=== PATIENT | male | born 1960 | race Caucasian/White ===

== ENCOUNTER 2023-10-28 11:27 | Inpatient (IN) | payer MEDICARE, OTHER ==
[~2023-10-28] VITALS: Ht 175.3 cm; Wt 68.0 kg
[2023-10-28] MEDS ORDERED: DIVA500T2 PO (11:47)
[2023-10-28] MEDS ORDERED: ACET325C7 PO (11:47)
[2023-10-28] MEDS ORDERED: ENOX40DI SQ (11:47)
[2023-10-28] MEDS ORDERED: CARB1CAP7 PO (11:47)
[2023-10-28] MEDS ORDERED: ARGI1POW17 PO (11:47)
[2023-10-28] MEDS ORDERED: ASCO500C18 PO (11:47)
[2023-10-28] MEDS ORDERED: TEMA7.5C2 PO (11:47)
[2023-10-28] MEDS ORDERED: IPRA4AER IH (11:47)
[2023-10-28] MEDS ORDERED: MONT10TA33 PO (11:47)
[2023-10-28] MEDS ORDERED: RISP2TAB5 PO (11:47)
[2023-10-28] MEDS ORDERED: IPRA3AMP23 IH (11:47)
[2023-10-28] MEDS ORDERED: MAGN400O6 PO (11:47)
[2023-10-28] MEDS ORDERED: RISP1TAB97 PO (11:47)
[2023-10-28] MEDS ORDERED: MULT-213 PO (11:47)
[2023-10-28] MEDS ORDERED: PANT40TA2 PO (11:47)
[2023-10-28] MEDS ORDERED: NA P133E RC (11:47)
[2023-10-28] MEDS ORDERED: LORA0.5T48 PO (11:47)
[2023-10-28] MEDS ORDERED: ZINC220T4 PO (11:47)
[2023-10-28] MEDS ORDERED: BISA10SU61 RC (11:47)
[2023-10-28 11:58] LABS: BASOPHILS # (AUTO) 0.2 K/UL (0.0-0.2); BASOPHILS % (AUTO) 1.3 % (0.0-2.0); EOSINOPHILS % (AUTO) 0.1 % (0.0-7.0); HEMATOCRIT 40.9 % (36.7-47.1); HEMOGLOBIN 13.1 g/dL (12.5-16.3); LYMPHOCYTES # (AUTO) 0.6 K/uL (0.8-4.8); LYMPHOCYTES % (AUTO) 3.7 % (20.5-51.5); MEAN CORPUSCULAR HEMOGLOBIN 28.4 uug (23.8-33.4); MEAN CORPUSCULAR HGB CONC 32 g/dL (32.5-36.3); MEAN CORPUSCULAR VOLUME 88.3 fL (73.0-96.2); MONOCYTES # (AUTO) 0.5 K/uL (0.1-1.30); MONOCYTES % (AUTO) 2.9 % (0.0-11.0); NEUTROPHILS # (AUTO) 15.9 K/uL (1.8-8.9); PLATELET COUNT (AUTO) 235 K/uL (152-348); RED BLOOD CELL COUNT(AUTO) 4.63 MIL/uL (4.06-5.63); RED CELL DISTRIBUTION WIDTH 13.5 % (12.1-16.2); WHITE BLOOD COUNT (AUTO) 17.2 K/uL (3.6-10.2)
[2023-10-28 12:00] LABS: DIFFERENTIAL COMMENT 1
[2023-10-28 12:05] LABS: CALCIUM 9.4 mg/dL (8.5-10.1); CARBON DIOXIDE 30 mmol/L (21-32); CHLORIDE 100 mmol/L (98-107); CREATININE 0.8 mg/dL (0.6-1.3); GLUCOSE 134 mg/dL (74-106); POTASSIUM 4.4 mmol/L (3.5-5.1); SODIUM SERUM 138 mmol/L (136-145); UREA NITROGEN, BLOOD 32 mg/dL (7-18)
[2023-10-28] MEDS: IV NORMAL SALINE 1000 ML BAG IV ONE (12:15)
[2023-10-28] MEDS: DEXAMETHASONE SOD PHOSPHATE 4 MG INJ IV ONE (12:15)
[2023-10-28] MEDS: CEFEPIME HCL 2 G in IV DEXTROSE 5% 100 ML IV ONE (12:15)
[2023-10-28 12:17] LABS: ABG BASE EXCESS 2.8 mmol/L (-2.0-2.0); ABG HCO3 27.2 mmol/L (22.0-26.0); ABG PCO2 41.1 mmHg (35.0-48.0); ABG PH 7.439 (7.340-7.440); ABG PO2 119.5 mmHg (75.0-100.0); ABG SITE RIGHT RADIAL; AaDO2 98.4 mmHg; COHb 0.5 % (0.0-3.9); MetHb 0.4 % (0.0-1.5); O2Hb 97.8 % (94.0-97.0)
[2023-10-28 12:18] LABS: ALANINE AMINOTRANSFERASE < 6 U/L (16-63); ALBUMIN 3.4 g/dL (3.4-5.0); ALKALINE PHOSPHATASE 70 U/L (50-136); ASPARTATE AMINOTRANSFERASE < 5 U/L (15-37); BILIRUBIN,DIRECT 0.2 mg/dL (0.0-0.2); BILIRUBIN,TOTAL 0.8 mg/dL (0.2-1.0); NT-PRO BNP 152 pg/mL (0-125); TOTAL PROTEIN, SERUM 7.1 g/dL (6.4-8.2)
[2023-10-28] MEDS ORDERED: DEXAMETHASONE SOD PHOSPHATE 10 MG INJ ONE (12:20)
[2023-10-28] MEDS ORDERED: CEFEPIME HCL 1 G VIAL ONE (12:20)
[2023-10-28 12:25] LABS: ANISOCYTOSIS 1+; BAND % (MANUAL) 3 % (0-10); LYMPHOCYTES % (MANUAL) 4 % (20-40); MONOCYTES % (MANUAL) 1 % (2-10); NEUTROPHILS % (MANUAL) 92 % (42-75); PLATELET ESTIMATE ADEQUATE
[2023-10-28 12:45] LABS: *BILIRUBIN,URIN 1+ (NEGATIVE); *BLOOD, URINE NEGATIVE (NEGATIVE); *CLARITY,URINE CLEAR (CLEAR); *KETONES,URINE 3+ (NEGATIVE); *PROTEIN,URINE 1+ (NEGATIVE); *UROBILINOGEN,URINE 0.2 E.U./dl (NORMAL); LEUKOCYTE ESTERASE ,URINE NEGATIVE (NEGATIVE); NITRITE, URINE NEGATIVE (NEGATIVE); UGLUCOSE NEGATIVE (NEGATIVE)
[2023-10-28 12:56] LABS: *COLOR,URINE DARK YELLOW (YELLOW)
[2023-10-28 12:59] LABS: RBC,URINE 0-3 /HPF (0-3)
[2023-10-28 13:00] LABS: BACTERIA,URINE NONE SEEN /HPF (NONE SEEN); SQUAMOUS EPITHELIAL CELL,UR FEW /HPF (NONE SEEN); WBC,URINE 0-3 /HPF (0-3)
[2023-10-28 16:28] VITALS: O2SAT 95
[2023-10-28 16:43] VITALS: BP 127/76; TEMP 99; O2SAT 95
[2023-10-28] MEDS ORDERED: BISACODYL 10 MG SUPP.RECT RC PRN (18:15)
[2023-10-28] MEDS ORDERED: ACETAMINOPHEN 325 MG TABLET PO PRN (18:15)
[2023-10-28] MEDS ORDERED: MAGNESIUM HYDROXIDE 30 ML LIQUID UDC PO PRN (18:15)
[2023-10-28] MEDS ORDERED: [UNRECOGNIZED DRUG - OTHER] PO SCH (18:15)
[2023-10-28] MEDS ORDERED: FLEET ENEMA 133 ML BOTTLE RC PRN (18:15)
[2023-10-28] MEDS ORDERED: LORAZEPAM 0.5 MG TABLET PO PRN (18:15)
[2023-10-28] MEDS ORDERED: TEMAZEPAM 7.5 MG CAPSULE PO PRN (18:15)
[2023-10-28 19:45] VITALS: BP 132/45; TEMP 98.4; O2SAT 94
[2023-10-28] MEDS: LORAZEPAM 2 MG/1 ML VIAL IV PRN (20:56)
[2023-10-28] MEDS: DIVALPROEX 500 MG TABLET.DR PO SCH (21:00)
[2023-10-28] MEDS: risperiDONE 2 MG TABLET PO SCH (21:00)
[2023-10-28] MEDS: MONTELUKAST SODIUM 10 MG TABLET PO SCH (21:00)
[2023-10-28] MEDS: PIPERACILLIN SODIUM/TAZOBACTAM 3.375 G in IV DEXTROSE 5% 100 ML IV SCH (21:20)
[2023-10-28 21:22] VITALS: O2SAT 95
[2023-10-28] MEDS ORDERED: PIPERACILLIN SODIUM/TAZOBACTAM 3.375 G in IV DEXTROSE 5% 50 ML IV SCH (22:00)
[2023-10-28 23:25] VITALS: TEMP 100.5
[2023-10-28] MEDS ORDERED: AMIODARONE HCL 150 MG/3 ML VIAL IV ONE (23:44)
[2023-10-28] MEDS: AMIODARONE HCL 150 MG/3 ML VIAL IV ONE (23:50)
[2023-10-29] VITALS (8 sets, daily range): BP systolic 62–118; BP diastolic 46–72; TEMP 97.2–100.5; O2SAT 97–99
[2023-10-29] MEDS: AMIODARONE HCL IV 150 MG in IV DEXTROSE 5% 100 ML IV ONE
[2023-10-29] MEDS: AMIODARONE HCL IV 450 MG in IV DEXTROSE 5% 250 ML IV PRN (00:20)
[2023-10-29] MEDS: ACETAMINOPHEN 650 MG SUPP.RECT RC PRN (02:36)
[2023-10-29] MEDS: AMIODARONE HCL 150 MG/3 ML VIAL IV ONE (05:51)
[2023-10-29] MEDS: PANTOPRAZOLE SODIUM 40 MG TABLET.DR PO SCH (06:02)
[2023-10-29 06:58] LABS: EOSINOPHILS % (AUTO) 0.1 % (0.0-7.0); HEMATOCRIT 39.6 % (36.7-47.1); LYMPHOCYTES # (AUTO) 0.1 K/uL (0.8-4.8); LYMPHOCYTES % (AUTO) 1.4 % (20.5-51.5); MEAN CORPUSCULAR HEMOGLOBIN 28.8 uug (23.8-33.4); MEAN CORPUSCULAR HGB CONC 33 g/dL (32.5-36.3); MEAN CORPUSCULAR VOLUME 87.7 fL (73.0-96.2); MONOCYTES # (AUTO) 0.2 K/uL (0.1-1.30); MONOCYTES % (AUTO) 2.3 % (0.0-11.0); NEUTROPHILS # (AUTO) 8.3 K/uL (1.8-8.9); NEUTROPHILS % (AUTO) 96.2 % (38.5-71.5); PLATELET COUNT (AUTO) 210 K/uL (152-348); RED BLOOD CELL COUNT(AUTO) 4.51 MIL/uL (4.06-5.63); RED CELL DISTRIBUTION WIDTH 13.5 % (12.1-16.2); WHITE BLOOD COUNT (AUTO) 8.6 K/uL (3.6-10.2)
[2023-10-29 07:07] LABS: DIFFERENTIAL COMMENT 1
[2023-10-29 07:23] LABS: ALANINE AMINOTRANSFERASE 23 U/L (16-63); ALKALINE PHOSPHATASE 62 U/L (50-136); ASPARTATE AMINOTRANSFERASE < 5 U/L (15-37); BILIRUBIN,TOTAL 0.5 mg/dL (0.2-1.0); CALCIUM 8.8 mg/dL (8.5-10.1); CARBON DIOXIDE 29 mmol/L (21-32); CHLORIDE 105 mmol/L (98-107); CHOLESTEROL 103 mg/dL (<200); GLUCOSE 153 mg/dL (74-106); HDL CHOLESTEROL 54 mg/dL (40-60); MAGNESIUM 2.5 mg/dL (1.8-2.4); PHOSPHOROUS 4.1 mg/dL (2.5-4.9); POTASSIUM 4.2 mmol/L (3.5-5.1); SODIUM SERUM 141 mmol/L (136-145); TOTAL PROTEIN, SERUM 6.6 g/dL (6.4-8.2); TRIGLYCERIDES 55 MG/DL (30-150); UREA NITROGEN, BLOOD 31 mg/dL (7-18)
[2023-10-29 08:10] LABS: THYROID STIMULATING HORMONE 1.132 mIU/mL (0.358-3.740)
[2023-10-29] MEDS ORDERED: DILTIAZEM HCL 30 MG TABLET PO SCH ×2 (08:30→12:00)
[2023-10-29] MEDS: ARGININE/GLUTAMINE/CALCIUM BMB 1 EACH POWD.PACK PO SCH (09:00)
[2023-10-29] MEDS: ASCORBIC ACID 500 MG TABLET PO SCH (09:00)
[2023-10-29] MEDS: ZINC SULFATE 220 MG CAPSULE PO SCH (09:00)
[2023-10-29] MEDS: MULTIVITAMINS,THERAPEUTIC TABLET PO SCH (09:00)
[2023-10-29] MEDS: risperiDONE 1 MG TABLET PO SCH (09:00)
[2023-10-29] MEDS: ENOXAPARIN SODIUM 40 MG/0.4 ML DISP.SYRIN SQ SCH (09:05)
[2023-10-29] MEDS ORDERED: ACETAMINOPHEN 650 MG SUPP.RECT RC PRN (20:45)
[2023-10-30] VITALS (10 sets, daily range): BP systolic 133–162; BP diastolic 76–87; TEMP 97.5–98.7; O2SAT 97–100
[2023-10-30 05:15] LABS: BASOPHILS # (AUTO) 0.1 K/UL (0.0-0.2); BASOPHILS % (AUTO) 1.9 % (0.0-2.0); EOSINOPHILS % (AUTO) 0.6 % (0.0-7.0); HEMATOCRIT 39.2 % (36.7-47.1); HEMOGLOBIN 12.6 g/dL (12.5-16.3); LYMPHOCYTES # (AUTO) 0.4 K/uL (0.8-4.8); LYMPHOCYTES % (AUTO) 13.7 % (20.5-51.5); MEAN CORPUSCULAR HEMOGLOBIN 28.3 uug (23.8-33.4); MEAN CORPUSCULAR HGB CONC 32 g/dL (32.5-36.3); MEAN CORPUSCULAR VOLUME 88.4 fL (73.0-96.2); MONOCYTES # (AUTO) 0.1 K/uL (0.1-1.30); MONOCYTES % (AUTO) 3.4 % (0.0-11.0); NEUTROPHILS # (AUTO) 2.2 K/uL (1.8-8.9); NEUTROPHILS % (AUTO) 80.4 % (38.5-71.5); PLATELET COUNT (AUTO) 176 K/uL (152-348); RED BLOOD CELL COUNT(AUTO) 4.44 MIL/uL (4.06-5.63); RED CELL DISTRIBUTION WIDTH 13.6 % (12.1-16.2); WHITE BLOOD COUNT (AUTO) 2.8 K/uL (3.6-10.2)
[2023-10-30 05:20] LABS: DIFFERENTIAL COMMENT 1
[2023-10-30 05:28] LABS: CALCIUM 8.7 mg/dL (8.5-10.1); CREATININE 0.7 mg/dL (0.6-1.3); MAGNESIUM 2.6 mg/dL (1.8-2.4); PHOSPHOROUS 3.5 mg/dL (2.5-4.9)
[2023-10-30] MEDS ORDERED: LEVALBUTEROL HCL NEB 0.63 MG/3 ML NEBU NEB PRN (08:15)
[2023-10-30] MEDS ORDERED: IPRATROPIUM BROMIDE 0.5 MG/2.5 ML NEBU NEB PRN (08:15)
[2023-10-30] MEDS: PANTOPRAZOLE SODIUM 40 MG VIAL IV SCH (09:07)
[2023-10-30 13:28] LABS: BAND % (MANUAL) 1 % (0-10); HYPOCHROMASIA 1+; LYMPHOCYTES % (MANUAL) 13 % (20-40); MONOCYTES % (MANUAL) 1 % (2-10); NEUTROPHILS % (MANUAL) 85 % (42-75); PLATELET ESTIMATE ADEQUATE
[2023-10-30 13:29] LABS: ANISOCYTOSIS 1+
[2023-10-30] MEDS: levETIRAcetam IV 1,000 MG in IV DEXTROSE 5% 100 ML IV SCH (15:07)
[2023-10-30] MEDS: AMIODARONE HCL 200 MG TABLET PO SCH (16:41)
[2023-10-31] VITALS (15 sets, daily range): BP systolic 115–172; BP diastolic 66–91; TEMP 97.8–101; O2SAT 94–100
[2023-10-31 05:09] LABS: BASOPHILS % (AUTO) 0.5 % (0.0-2.0); EOSINOPHILS % (AUTO) 0.4 % (0.0-7.0); HEMOGLOBIN 13.2 g/dL (12.5-16.3); LYMPHOCYTES # (AUTO) 0.6 K/uL (0.8-4.8); LYMPHOCYTES % (AUTO) 17.8 % (20.5-51.5); MEAN CORPUSCULAR HEMOGLOBIN 29.1 uug (23.8-33.4); MEAN CORPUSCULAR HGB CONC 33 g/dL (32.5-36.3); MEAN CORPUSCULAR VOLUME 88.3 fL (73.0-96.2); MONOCYTES # (AUTO) 0.1 K/uL (0.1-1.30); MONOCYTES % (AUTO) 2.7 % (0.0-11.0); NEUTROPHILS # (AUTO) 2.8 K/uL (1.8-8.9); NEUTROPHILS % (AUTO) 78.6 % (38.5-71.5); PLATELET COUNT (AUTO) 195 K/uL (152-348); RED BLOOD CELL COUNT(AUTO) 4.53 MIL/uL (4.06-5.63); RED CELL DISTRIBUTION WIDTH 13.5 % (12.1-16.2); WHITE BLOOD COUNT (AUTO) 3.6 K/uL (3.6-10.2)
[2023-10-31 05:11] LABS: DIFFERENTIAL COMMENT 1
[2023-10-31 05:26] LABS: BILIRUBIN,TOTAL 0.6 mg/dL (0.2-1.0); CALCIUM 8.7 mg/dL (8.5-10.1); CREATININE 0.8 mg/dL (0.6-1.3); MAGNESIUM 2.6 mg/dL (1.8-2.4); PHOSPHOROUS 3.7 mg/dL (2.5-4.9); TOTAL PROTEIN, SERUM 6.9 g/dL (6.4-8.2)
[2023-10-31] MEDS ORDERED: AMIODARONE HCL IV 450 MG in IV DEXTROSE 5% 250 ML IV PRN (06:00)
[2023-10-31] MEDS: AMIODARONE HCL IV 150 MG in IV DEXTROSE 5% 100 ML IV ONE ×2 (06:00→19:54)
[2023-10-31] MEDS: AMIODARONE HCL 200 MG TABLET PO SCH (12:32)
[2023-10-31] MEDS: CARBIDOPA/LEVODOPA 25-250MG TABLET NG SCH (13:05)
[2023-10-31] MEDS: AMIODARONE HCL 150 MG/3 ML VIAL IV ONE (19:50)
[2023-10-31] MEDS: AMIODARONE HCL IV 450 MG in IV DEXTROSE 5% 250 ML IV PRN (20:05)
[2023-11-01] VITALS (12 sets, daily range): BP systolic 101–157; BP diastolic 56–83; TEMP 98.4–100.5; O2SAT 97–100
[2023-11-01 05:01] LABS: BASOPHILS % (AUTO) 0.3 % (0.0-2.0); EOSINOPHILS % (AUTO) 0.6 % (0.0-7.0); HEMATOCRIT 39.1 % (36.7-47.1); HEMOGLOBIN 12.8 g/dL (12.5-16.3); LYMPHOCYTES # (AUTO) 0.6 K/uL (0.8-4.8); LYMPHOCYTES % (AUTO) 12.6 % (20.5-51.5); MEAN CORPUSCULAR HEMOGLOBIN 28.6 uug (23.8-33.4); MEAN CORPUSCULAR HGB CONC 33 g/dL (32.5-36.3); MEAN CORPUSCULAR VOLUME 87.7 fL (73.0-96.2); MONOCYTES # (AUTO) 0.2 K/uL (0.1-1.30); MONOCYTES % (AUTO) 3.4 % (0.0-11.0); NEUTROPHILS # (AUTO) 4.1 K/uL (1.8-8.9); NEUTROPHILS % (AUTO) 83.1 % (38.5-71.5); PLATELET COUNT (AUTO) 187 K/uL (152-348); RED BLOOD CELL COUNT(AUTO) 4.46 MIL/uL (4.06-5.63); RED CELL DISTRIBUTION WIDTH 13.5 % (12.1-16.2); WHITE BLOOD COUNT (AUTO) 4.9 K/uL (3.6-10.2)
[2023-11-01 05:09] LABS: DIFFERENTIAL COMMENT 1
[2023-11-01 05:13] LABS: CREATININE 0.7 mg/dL (0.6-1.3); MAGNESIUM 2.5 mg/dL (1.8-2.4); PHOSPHOROUS 3.9 mg/dL (2.5-4.9); POTASSIUM 3.9 mmol/L (3.5-5.1)
[2023-11-01] MEDS: ACETAMINOPHEN 500 MG TABLET NG PRN (08:04)
[2023-11-01] MEDS ORDERED: DIVALPROEX 500 MG TABLET.DR PO SCH (09:00)
[2023-11-01] MEDS ORDERED: IV D5W-0.45% NS 1000 ML BAG IV ONE (09:00)
[2023-11-01] MEDS: IV D5 1/2 NS 1000 ML 1,000 ML IV PRN (09:03)
[2023-11-01] MEDS ORDERED: ACETAMINOPHEN 650 MG SUPP.RECT RC PRN (19:45)
[2023-11-02] VITALS (9 sets, daily range): BP systolic 131–135; BP diastolic 64–90; TEMP 97.6–99; O2SAT 94–98
[2023-11-02 06:18] LABS: BASOPHILS # (AUTO) 0.1 K/UL (0.0-0.2); BASOPHILS % (AUTO) 2.4 % (0.0-2.0); EOSINOPHILS # (AUTO) 0.1 K/uL (0.0-0.7); HEMATOCRIT 38.3 % (36.7-47.1); HEMOGLOBIN 12.2 g/dL (12.5-16.3); LYMPHOCYTES # (AUTO) 0.6 K/uL (0.8-4.8); LYMPHOCYTES % (AUTO) 12.3 % (20.5-51.5); MEAN CORPUSCULAR HGB CONC 32 g/dL (32.5-36.3); MEAN CORPUSCULAR VOLUME 87.7 fL (73.0-96.2); MONOCYTES # (AUTO) 0.3 K/uL (0.1-1.30); MONOCYTES % (AUTO) 5.3 % (0.0-11.0); NEUTROPHILS # (AUTO) 4.2 K/uL (1.8-8.9); PLATELET COUNT (AUTO) 161 K/uL (152-348); RED BLOOD CELL COUNT(AUTO) 4.37 MIL/uL (4.06-5.63); RED CELL DISTRIBUTION WIDTH 13.1 % (12.1-16.2); WHITE BLOOD COUNT (AUTO) 5.3 K/uL (3.6-10.2)
[2023-11-02 06:23] LABS: DIFFERENTIAL COMMENT 1
[2023-11-02 06:34] LABS: ALANINE AMINOTRANSFERASE 12 U/L (16-63); ALBUMIN 2.7 g/dL (3.4-5.0); ALKALINE PHOSPHATASE 57 U/L (50-136); ASPARTATE AMINOTRANSFERASE 6 U/L (15-37); BILIRUBIN,TOTAL 0.5 mg/dL (0.2-1.0); CALCIUM 8.8 mg/dL (8.5-10.1); CARBON DIOXIDE 34 mmol/L (21-32); CHLORIDE 110 mmol/L (98-107); CREATININE 0.5 mg/dL (0.6-1.3); GLUCOSE 120 mg/dL (74-106); MAGNESIUM 2.3 mg/dL (1.8-2.4); POTASSIUM 3.6 mmol/L (3.5-5.1); SODIUM SERUM 149 mmol/L (136-145); TOTAL PROTEIN, SERUM 6.4 g/dL (6.4-8.2); UREA NITROGEN, BLOOD 31 mg/dL (7-18)
[2023-11-02] MEDS: POTASSIUM CHLORIDE 20 MEQ POWDER PACKET GT ONE (08:42)
[2023-11-02] MEDS: AMIODARONE HCL 200 MG TABLET PO SCH (08:46)
[2023-11-02] MEDS ORDERED: MINERAL OIL/PETROLATUM,WHITE 57 GM TUBE TOP PRN (09:15)
[2023-11-02] MEDS ORDERED: ALBUTEROL SULFATE 1.25 MG/3 ML NEBU NEB PRN (14:15)
[2023-11-03] VITALS (7 sets, daily range): BP systolic 105–146; BP diastolic 59–79; TEMP 97.7–98.8; O2SAT 95–100
[2023-11-03 07:28] LABS: BASOPHILS % (AUTO) 0.4 % (0.0-2.0); EOSINOPHILS # (AUTO) 0.1 K/uL (0.0-0.7); EOSINOPHILS % (AUTO) 0.8 % (0.0-7.0); HEMATOCRIT 39.2 % (36.7-47.1); HEMOGLOBIN 12.9 g/dL (12.5-16.3); LYMPHOCYTES # (AUTO) 0.9 K/uL (0.8-4.8); LYMPHOCYTES % (AUTO) 12.9 % (20.5-51.5); MEAN CORPUSCULAR HEMOGLOBIN 28.8 uug (23.8-33.4); MEAN CORPUSCULAR HGB CONC 33 g/dL (32.5-36.3); MEAN CORPUSCULAR VOLUME 87.7 fL (73.0-96.2); MONOCYTES # (AUTO) 0.3 K/uL (0.1-1.30); MONOCYTES % (AUTO) 4.6 % (0.0-11.0); NEUTROPHILS # (AUTO) 5.4 K/uL (1.8-8.9); NEUTROPHILS % (AUTO) 81.3 % (38.5-71.5); PLATELET COUNT (AUTO) 163 K/uL (152-348); RED BLOOD CELL COUNT(AUTO) 4.47 MIL/uL (4.06-5.63); RED CELL DISTRIBUTION WIDTH 13.2 % (12.1-16.2); WHITE BLOOD COUNT (AUTO) 6.6 K/uL (3.6-10.2)
[2023-11-03 07:33] LABS: CALCIUM 8.9 mg/dL (8.5-10.1); CARBON DIOXIDE 33 mmol/L (21-32); CHLORIDE 106 mmol/L (98-107); CREATININE 0.6 mg/dL (0.6-1.3); GLUCOSE 110 mg/dL (74-106); MAGNESIUM 2.3 mg/dL (1.8-2.4); PHOSPHOROUS 3.6 mg/dL (2.5-4.9); POTASSIUM 3.9 mmol/L (3.5-5.1); SODIUM SERUM 143 mmol/L (136-145); UREA NITROGEN, BLOOD 29 mg/dL (7-18)
[2023-11-03 07:49] LABS: DIFFERENTIAL COMMENT 1
[2023-11-03] MEDS: VITAL AF 1.2 1,000 ML LIQUID GT PRN (16:15)
[2023-11-04] VITALS (8 sets, daily range): BP systolic 119–159; BP diastolic 57–78; TEMP 97.5–98.7; O2SAT 96–100
[2023-11-04] MEDS ORDERED: MIDAZOLAM HCL 2 MG/2 ML VIAL ONE (19:17)
[2023-11-05] VITALS (11 sets, daily range): BP systolic 101–132; BP diastolic 54–67; TEMP 97.5–99; O2SAT 94–98
[2023-11-05 07:44] LABS: BASOPHILS % (AUTO) 0.4 % (0.0-2.0); EOSINOPHILS % (AUTO) 0.8 % (0.0-7.0); HEMOGLOBIN 11.8 g/dL (12.5-16.3); LYMPHOCYTES # (AUTO) 0.6 K/uL (0.8-4.8); LYMPHOCYTES % (AUTO) 12.4 % (20.5-51.5); MEAN CORPUSCULAR HEMOGLOBIN 28.6 uug (23.8-33.4); MEAN CORPUSCULAR HGB CONC 33 g/dL (32.5-36.3); MEAN CORPUSCULAR VOLUME 87.5 fL (73.0-96.2); MONOCYTES # (AUTO) 0.2 K/uL (0.1-1.30); MONOCYTES % (AUTO) 4.9 % (0.0-11.0); NEUTROPHILS # (AUTO) 3.8 K/uL (1.8-8.9); NEUTROPHILS % (AUTO) 81.5 % (38.5-71.5); PLATELET COUNT (AUTO) 146 K/uL (152-348); RED BLOOD CELL COUNT(AUTO) 4.11 MIL/uL (4.06-5.63); RED CELL DISTRIBUTION WIDTH 12.8 % (12.1-16.2); WHITE BLOOD COUNT (AUTO) 4.7 K/uL (3.6-10.2)
[2023-11-05 08:05] LABS: DIFFERENTIAL COMMENT 1
[2023-11-05 08:18] LABS: ALANINE AMINOTRANSFERASE 25 U/L (16-63); ALBUMIN 2.3 g/dL (3.4-5.0); ALKALINE PHOSPHATASE 60 U/L (50-136); ASPARTATE AMINOTRANSFERASE 25 U/L (15-37); BILIRUBIN,TOTAL 0.5 mg/dL (0.2-1.0); CALCIUM 8.3 mg/dL (8.5-10.1); CARBON DIOXIDE 33 mmol/L (21-32); CHLORIDE 104 mmol/L (98-107); CREATININE 0.4 mg/dL (0.6-1.3); GLUCOSE 118 mg/dL (74-106); MAGNESIUM 2.2 mg/dL (1.8-2.4); PHOSPHOROUS 3.1 mg/dL (2.5-4.9); POTASSIUM 3.3 mmol/L (3.5-5.1); SODIUM SERUM 141 mmol/L (136-145); TOTAL PROTEIN, SERUM 5.6 g/dL (6.4-8.2); UREA NITROGEN, BLOOD 20 mg/dL (7-18)
[2023-11-05] MEDS: AMIODARONE HCL 200 MG TABLET PO SCH (09:03)
[2023-11-05] MEDS ORDERED: POTASSIUM CHLORIDE 20 MEQ POWDER PACKET GT ONE (11:30)
[2023-11-05] MEDS: POTASSIUM CHLORIDE 20 MEQ POWDER PACKET GT ONE (13:05)
[2023-11-05] MEDS: MEDIHONEY= THERAHONEY 1.5 OZ TUBE TOP SCH (13:08)
[2023-11-06 05:22] VITALS: BP 129/80; TEMP 98.3; O2SAT 96
[2023-11-06 06:42] LABS: BASOPHILS % (AUTO) 0.4 % (0.0-2.0); EOSINOPHILS # (AUTO) 0.1 K/uL (0.0-0.7); EOSINOPHILS % (AUTO) 0.8 % (0.0-7.0); HEMATOCRIT 37.3 % (36.7-47.1); HEMOGLOBIN 12.3 g/dL (12.5-16.3); LYMPHOCYTES # (AUTO) 0.7 K/uL (0.8-4.8); LYMPHOCYTES % (AUTO) 9.5 % (20.5-51.5); MEAN CORPUSCULAR HEMOGLOBIN 28.7 uug (23.8-33.4); MEAN CORPUSCULAR HGB CONC 33 g/dL (32.5-36.3); MEAN CORPUSCULAR VOLUME 86.8 fL (73.0-96.2); MONOCYTES # (AUTO) 0.2 K/uL (0.1-1.30); MONOCYTES % (AUTO) 3.5 % (0.0-11.0); NEUTROPHILS # (AUTO) 5.9 K/uL (1.8-8.9); NEUTROPHILS % (AUTO) 85.8 % (38.5-71.5); PLATELET COUNT (AUTO) 157 K/uL (152-348); RED CELL DISTRIBUTION WIDTH 12.7 % (12.1-16.2); WHITE BLOOD COUNT (AUTO) 6.9 K/uL (3.6-10.2)
[2023-11-06 06:52] LABS: DIFFERENTIAL COMMENT 1
[2023-11-06 07:01] LABS: CALCIUM 8.4 mg/dL (8.5-10.1); CARBON DIOXIDE 35 mmol/L (21-32); CHLORIDE 101 mmol/L (98-107); CREATININE 0.4 mg/dL (0.6-1.3); GLUCOSE 98 mg/dL (74-106); MAGNESIUM 2.1 mg/dL (1.8-2.4); POTASSIUM 3.5 mmol/L (3.5-5.1); SODIUM SERUM 139 mmol/L (136-145); UREA NITROGEN, BLOOD 18 mg/dL (7-18)
[2023-11-06] MEDS: PANTOPRAZOLE ORAL SUSPENSION 40 MG SUSPDR.PKT GT SCH (09:14)
[2023-11-06 09:30] VITALS: O2SAT 96
[2023-11-06 11:34] VITALS: BP 80/51; TEMP 98.2; O2SAT 93
[2023-11-06] MEDS ORDERED: ALBU1.25 NEB (12:07)
[2023-11-06] MEDS ORDERED: CARB1TAB24 GT (12:07)
[2023-11-06] MEDS ORDERED: AMIO200T6 GT (12:07)
[2023-11-06] MEDS ORDERED: ENOX40DI SQ (12:07)
[2023-11-06] MEDS ORDERED: PANT40SU2 GT (12:07)
[2023-11-06] MEDS ORDERED: NA P133E RC (12:07)
[2023-11-06] MEDS ORDERED: MONT10TA33 GT (12:07)
[2023-11-06] MEDS ORDERED: RISP2TAB5 GT (12:07)
[2023-11-06] MEDS ORDERED: MENT113O TOP (12:07)
[2023-11-06] MEDS ORDERED: RISP1TAB7 GT (12:07)
[2023-11-06] MEDS ORDERED: ZINC1CAP3 GT (12:07)
[2023-11-06] MEDS ORDERED: IPRA0.2S6 NEB (12:07)
[2023-11-06] MEDS ORDERED: ACET325C7 GT (12:07)
[2023-11-06] MEDS ORDERED: TEMA7.5C GT (12:07)
[2023-11-06] MEDS ORDERED: LEVE1000 GT (12:07)
[2023-11-06] MEDS ORDERED: MULT-24 GT (12:07)
[2023-11-06] MEDS ORDERED: NUT.237L65 GT (12:07)
[2023-11-06] MEDS ORDERED: MINE454C11 TOP (12:07)
[2023-11-06] MEDS ORDERED: NUTR1PAC14 GT (12:07)
[2023-11-06 12:25] VITALS: O2SAT 96
[2023-11-06 13:00] VITALS: BP 89/65; TEMP 98.2; O2SAT 93
[2023-11-06] MEDS: IV NORMAL SALINE 500 ML IV ONE (13:58)
[2023-11-06 16:00] VITALS: BP 110/64; TEMP 98.5; O2SAT 98
[2023-11-06] MEDS ORDERED: levETIRAcetam 500 MG/5 ML LIQUID UDC GT SCH (21:00)
== END 2023-11-06 17:30 | DRG 871 ==
LOC: ER 11:27 → TELE3 16:04 → TELE-TD3 23:58 → CCU 10-29 07:41 → TELE3 11-01 15:56 → TELE-TD3 11-01 16:02 → TELE3 11-03 09:35 → MEDSURG3 11-05 11:00
PROVIDERS: ADMIT Internal Medicine; ATTEND Internal Medicine
PROC: 0DH67UZ Insertion of Feeding Device into Stomach, Via Natural or Artificial Opening (ICD-10-PCS; 2023-10-30)
PROC: 05HC33Z Insertion of Infusion Device into Left Basilic Vein, Percutaneous Approach (ICD-10-PCS; principal; 2023-11-03)
PROC: 0DH63UZ Insertion of Feeding Device into Stomach, Percutaneous Approach (ICD-10-PCS; 2023-11-04)
DX: A41.9 Sepsis, unspecified organism (principal); J18.9 Pneumonia, unspecified organism; J69.0 Pneumonitis due to inhalation of food and vomit; J96.01 Acute respiratory failure with hypoxia; F02.82 Dementia in other diseases classified elsewhere, unspecified severity, with psychotic disturbance; E44.1 Mild protein-calorie malnutrition; E87.0 Hyperosmolality and hypernatremia; D68.59 Other primary thrombophilia; F02.818 Dementia in other diseases classified elsewhere, unspecified severity, with other behavioral disturbance; J91.8 Pleural effusion in other conditions classified elsewhere; L89.622 Pressure ulcer of left heel, stage 2; R13.10 Dysphagia, unspecified; K21.9 Gastro-esophageal reflux disease without esophagitis; R62.7 Adult failure to thrive; K29.70 Gastritis, unspecified, without bleeding; G20.A1 Parkinson's disease without dyskinesia, without mention of fluctuations; J84.10 Pulmonary fibrosis, unspecified; E87.6 Hypokalemia; I48.0 Paroxysmal atrial fibrillation; G40.909 Epilepsy, unspecified, not intractable, without status epilepticus; E86.0 Dehydration; R73.9 Hyperglycemia, unspecified; Z74.01 Bed confinement status; E88.09 Other disorders of plasma-protein metabolism, not elsewhere classified; S90.822A Blister (nonthermal), left foot, initial encounter; X58.XXXA Exposure to other specified factors, initial encounter; Y92.129 Unspecified place in nursing home as the place of occurrence of the external cause; Z87.01 Personal history of pneumonia (recurrent); Z68.22 Body mass index [BMI] 22.0-22.9, adult; R21 Rash and other nonspecific skin eruption; R79.89 Other specified abnormal findings of blood chemistry
CPT/HCPCS: 36415; 36600; 43235; 70030-TC; 71045; 74018; 83605; 83735; 84100; 84443; 84484; 85025; 85730; 87040; 93005; A4606; A4663; A6209; A6213; A9150; G0378; J0282; J0692; J1100; J1650; J1953; J2060; J2250; J2470; J2543; J7040; J7042; J7050